=== PATIENT | female | born 1975 | race Caucasian/White ===

== ENCOUNTER 2016-05-15 11:02 | Inpatient (IN) | payer BC ==
[2016-05-14 12:41] VITALS: BMI 49.4
[~2016-05-15 11:02] MED LIST: BUPIVACAINE HCL/PF 0.5% (5MG/ML) 10 ML VIAL IJ ONE
[2016-05-15] MEDS ORDERED: BUPIVACAINE HCL/PF 0.5% (5MG/ML) 10 ML VIAL ONE (13:55)
[2016-05-15] MEDS ORDERED: PROPOFOL 20 ML ONE ×4 (13:59→14:00)
[2016-05-15] MEDS ORDERED: ROCURONIUM BROMIDE 50 MG/5 ML VIAL ONE ×2 (13:59→15:41)
[2016-05-15] MEDS ORDERED: LIDOCAINE HCL/PF 2% SDV 5ML VIAL ONE (13:59)
[2016-05-15] MEDS ORDERED: MIDAZOLAM HCL 2 MG/2 ML SINGLE DOSE VIAL ONE ×2 (14:00)
[2016-05-15] MEDS ORDERED: TRIMETHOBENZAMIDE HCL 200MG/2ML INJ IM PRN (14:51)
[2016-05-15] MEDS ORDERED: ceFAZolin SODIUM 1 GM VIAL ONE (15:10)
[2016-05-15] MEDS ORDERED: ceFAZolin SODIUM 1 GM VIAL IVPB ONE (15:17)
[2016-05-15] MEDS ORDERED: NEOSTIGMINE METHYLSULFATE 0.5 MG/ML - 10 ML MDV ONE (16:48)
[2016-05-15] MEDS ORDERED: GLYCOPYRROLATE 0.2 MG/1 ML VIAL ONE (16:48)
[2016-05-15] MEDS ORDERED: DEXAMETHASONE SOD PHOSPHATE 4 MG/1 ML VIAL ONE (16:51)
[2016-05-15] MEDS ORDERED: KETOROLAC TROMETHAMINE 30 MG/1 ML VIAL ONE (16:51)
[2016-05-15] MEDS ORDERED: BUPIVACAINE HCL/PF 0.5% (5MG/ML) 10 ML VIAL IJ ONE (16:55)
[2016-05-15] MEDS ORDERED: HYDROmorphone *PCA* 10MG/50ML DISP.SYRIN PCA ONE (17:28)
[2016-05-15] MEDS ORDERED: HYDROmorphone *PCA* 10MG/50ML DISP.SYRIN PCA SCH (17:30)
--- NOTE | 2016-05-15 17:39 | OP ---
DATE OF OPERATION: 05/15/2016 PREOPERATIVE DIAGNOSES: 1. Morbid obesity. 2. Hypertension. 3. Sleep apnea. 4. Polycystic ovarian syndrome. POSTOPERATIVE DIAGNOSES: 1. Morbid obesity. 2. Sleep apnea. 3. Hypertension. 4. Polycystic ovarian syndrome. PROCEDURE PERFORMED: 1. Laparoscopic vertical sleeve gastrectomy. 2. Diagnostic laparoscopy. OPERATING SURGEON: Ramón Gallegos MD WREATH INSPECTOR: Luis Barker MD ANESTHESIA: General. EXPECTED BLOOD LOSS: 30 mL. DISPOSITION: Patient transferred to the recovery room in stable condition. OPERATIVE PROCEDURE: The patient was brought into the operating room, placed on the OR table in the supine position. All precautions were taken initially including padding for the back and the feet, and Venodyne boots were placed on both lower extremities. At that point, the abdomen was prepped and draped in the usual manner. A Veress needle was placed in the left upper quadrant and a pneumoperitoneum established. A number 12 bladeless trocar was placed in the left upper quadrant. Through that trocar, a laparoscopic camera was placed. Under direct vision, a number 15 bladeless trocar was placed in the midline in a supraumbilical position, followed by a number 5 bladeless trocar in the right upper quadrant and a number 5 bladeless trocar below the left costal margin. A Kristy liver retractor was then placed in the epigastrium to retract the left lobe of the liver. The patient was then placed in a 20-degree reverse Trendelenburg position, and attention was directed to the pylorus and the distal end of the stomach. The pylorus was found, and 6 cm were measured proximally. Here, on the greater curve, the surgical services assistant surgeon retracted the gastrocolic ligament inferiorly. The operating surgeon lifted the stomach toward the anterior abdominal wall. Now, the LigaSure device was used to dissect the gastrocolic ligament off the greater curve of stomach. This continued in a superior vertical direction as the short gastric vessels were dissected off the greater curve of the stomach, too. This continued until the final short gastric vessel between the superior pole of the spleen and the proximal fundus was divided. At this juncture, Anesthesia inserted a bougie which was a number 40. With the bougie held along the lesser curve, a series of remberto was performed which the first 2 being black load along the bougie, being certain that the anterior and posterior rows were equal before firing the stapler. After the 2 black load remberto, a series of the purple load remberto was formed also along the bougie, also being sure the anterior and posterior rows were equal. In the area of the esophagogastric junction, approximately 1 to 1.5 cm of serosa remained. When the final bougie was fired in the left upper quadrant, the greater curve was now completely detached from the lesser curve. At this juncture, saline was placed around the staple line. Anesthesia inserted air into the bougie, which showed the entire stomach distended to the pylorus. No obstruction and no leaks were noted. At this juncture, the resected greater curve was now removed with a number 15 trocar site and sent off the field as specimen. Both the number 15 and number 12 trocar sites were closed with Endo Closure device to prevent internal hernia and prevent bleeding. Under direct vision, the liver retractor and all trocars were removed. The pneumoperitoneum was released. All trocar sites received 0.50% Marcaine and were closed with 4-0 Biosyn in subcuticular fashion. Dressings were applied. Patient awoke from anesthesia and transferred out of the operating room to the recovery room in stable condition. Chandni [id number]
[2016-05-15 18:03] LABS: MCH 24.7 pg (25.7-33.7); MCHC 32.3 g/dl (32.0-36.0); MEAN CELL VOLUME 76.7 fl (80-96); MEAN PLT VOLUME 7.3 fl (7.5-11.1); PLATELET COUNT 370 K/MM3 (134-434); RDW 15.6 % (11.6-15.6); WHITE BLOOD COUNT 16.1 K/mm3 (4.0-10.0)
[2016-05-15 18:38] LABS: ALBUMIN 3.7 g/dl (3.4-5.0); ALK PHOS 50 U/L (45-117); ANION GAP 9 (8-16); BILIRUBIN,TOTAL 0.2 mg/dL (0.2-1.0); CALCIUM 8.6 mg/dL (8.5-10.1); CO2 26 mmol/L (21-32); CREATININE 0.8 mg/dL (0.55-1.02); GLUCOSE,RANDOM 140 mg/dL (74-106); SGOT/AST 60 U/L (15-37); SGPT/ALT 75 U/L (12-78); TOT PROT 6.8 g/dl (6.4-8.2)
[2016-05-15] MEDS: SODIUM CHLORIDE 1,000 ML IV SCH (22:12)
[2016-05-15] MEDS: FAMOTIDINE 20 MG/50 ML IVPB 50 ML IVPB SCH (22:18)
[2016-05-15] MEDS: LACTATED RINGERS SOLUTION 1,000 ML IV SCH ×2 (22:18→23:00)
[2016-05-15] MEDS: ENOXAPARIN NA (PORCINE) 40 MG/0.4 ML DISP.SYRIN SQ SCH (22:18)
[2016-05-16] MEDS: SODIUM CHLORIDE 1,000 ML IV SCH (04:48)
[2016-05-16 08:32] LABS: MCH 25.3 pg (25.7-33.7); MCHC 32.8 g/dl (32.0-36.0); MEAN PLT VOLUME 7.5 fl (7.5-11.1); PLATELET COUNT 330 K/MM3 (134-434); RDW 15.8 % (11.6-15.6); WHITE BLOOD COUNT 11.9 K/mm3 (4.0-10.0)
[2016-05-16 09:32] LABS: ALBUMIN 3.4 g/dl (3.4-5.0); ANION GAP 9 (8-16); CALCIUM 8.6 mg/dL (8.5-10.1); CO2 25 mmol/L (21-32); GLUCOSE,RANDOM 106 mg/dL (74-106)
[2016-05-16 09:36] LABS: ALK PHOS 48 U/L (45-117); BILIRUBIN,TOTAL 0.3 mg/dL (0.2-1.0); CREATININE 0.7 mg/dL (0.55-1.02); SGOT/AST 33 U/L (15-37); SGPT/ALT 56 U/L (12-78); TOT PROT 6.6 g/dl (6.4-8.2)
[2016-05-16] MEDS ORDERED: oxyCODONE HCL 5 MG TABLET PO PRN (09:58)
[2016-05-16] MEDS ORDERED: ACETAMINOPHEN 325 MG TABLET (FP) PO PRN (09:58)
[2016-05-16] MEDS: FAMOTIDINE 20 MG/50 ML IVPB 50 ML IVPB SCH (09:59)
[2016-05-16] MEDS ORDERED: SODIUM CHLORIDE 1,000 ML IV SCH (10:00)
[2016-05-16] MEDS ORDERED: LISINOPRIL 10 MG TABLET (FP) PO SCH (10:00)
[2016-05-16] MEDS: ENOXAPARIN NA (PORCINE) 40 MG/0.4 ML DISP.SYRIN SQ SCH (10:01)
[2016-05-16] MEDS ORDERED: INSULIN SLIDING SCALE (NOVOLOG) 1 VIAL SQ SCH (11:00)
--- NOTE | 2016-05-16 11:35 | PN ---
Progress Note (short form) - Note Progress Note: POD #1 - s/p gastric sleeve under general anesthesia. Pt. doing well, resting comfortably in bed. No complaints. Pt. 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 No apparent anesthetic complications noted. Continue current care.
--- NOTE | 2016-05-16 16:17 | PN ---
Progress Note (short form) - Note Progress Note: POD #1 Pt doing well p-72-82 BP- 120/66 Pt comfortable no N/V Audi po clear liquids- 2oz po tid Ambulating well All incisions- clean, dry Ext- no swelling SCD's in place bilaterally UGI- no leak, no obstruction WBC-11.9 (decreased) H/H-11.6 35.9 ( no change) P- D/C pt home F/U- 6 days
[2016-05-16 18:20] VITALS: BP 128/72; PULSE 77; TEMP 98.6
--- NOTE | 2016-05-19 12:34 | PATH ---
Surgical Pathology Report Patient Name: MARLEN PATE Med. Rec. #: [id number] /Age/Gender: 1975 (Age: 40) / F Account: [id number] Location: 4 W TELEMETRY U Taken: 05/15/2016 Received: 05/16/2016 Reported: 05/19/2016 Physicians: Ramón Gallegos M.D. Specimen(s) Received GREATER CURVATURE OF STOMACH Clinical History Morbid obesity Final Diagnosis STOMACH, GREATER CURVATURE, LAPAROSCOPIC VERTICAL SLEEVE GASTRECTOMY: PORTION OF STOMACH WITH MILD PATCHY CHRONIC GASTRITIS. IMMUNOSTAIN FOR H. PYLORI IS NEGATIVE FOR ORGANISMS. Electronically Signed Christopher Escobar M.D. Gross Description Received in formalin, labeled "greater curvature of stomach" is a 19 x 3.5 x 2 cm portion of stomach. The serosa is urena-pink and smooth. The resectioned margin is stapled shut. The mucosa is urena-pink with preserved folds and foci of hemorrhage. Corporate Strategist sections submitted in one cassette. (AF) [email or web address]/05/16/2016
== END 2016-05-16 18:30 | disposition home or self-care (01) | DRG 621 ==
LOC: JSAMEDAYSX 11:02 → J4W 20:10
PROVIDERS: ADMIT Surgery; ATTEND Surgery
PROC: 0DB64Z3 Excision of Stomach, Percutaneous Endoscopic Approach, Vertical (ICD-10-PCS; principal; 2016-05-15 12:30)
DX: E66.01 Morbid (severe) obesity due to excess calories (principal); Z68.42 Body mass index [BMI] 45.0-49.9, adult; G47.30 Sleep apnea, unspecified; I10 Essential (primary) hypertension; E28.2 Polycystic ovarian syndrome
CPT/HCPCS: 36415; 74241-TC; 80053; 84703; 85027; 88305-TC; 94010; 94760